=== PATIENT | female | born 1945 | race Caucasian/White ===

== ENCOUNTER 2019-05-13 17:19 | Emergency (ER) | payer MEDICARE, OTHER, SELFPAY ==
--- NOTE | ~2019-05-13 | XR_ITS ---
EXAMINATION: XR shoulder RT min 2V DATE: 05/13/2019 18:02 INDICATION: Pain and limited range of motion at the right shoulder after pulling injury. TECHNIQUE: AP internally and externally rotated, AP oblique externally rotated and transscapular Y vi ews of the right shoulder were obtained. COMPARISON: None FINDINGS: Normal alignment. No fracture.Mild glenohumeral osteoarthritis with inferior predominant joint space narrowing and small marginal osteophyte about the humeral head and glenoid. Moderate acromioclavicul ar osteoarthritis with small inferiorly directed osteophytes. There is also a prominent anterior suba cromial spur. Mild hypertrophic change along the greater tuberosity. There is also several tiny foci of dystrophic calcification in the soft tissues adjacent to the posterior aspect of the greater tuber osity suggesting rotator cuff calcific tendinitis. A few scattered tiny calcified pulmonary nodules c onsistent with old granulomatous disease. Soft tissues are unremarkable. At least moderate cervicotho racic spondylosis. IMPRESSION: Degenerative skeletal changes at the right shoulder as detailed above. No acute osseous abnormality. Reviewed, dictated and finalized at location A. AL TECHNICIAN APPRENTICE
[2019-05-13 17:30] VITALS: BP 170/72; PULSE 81; RESP 20; TEMP 36.7; O2SAT 100
--- NOTE | 2019-05-13 17:30 | ED.UPPEXIN ---
HPI - Extremity Injury (Upper) General Chief Complaint: Extremity Injury, Upper Stated Complaint: right arm injury Time Seen by Provider: 05/13/19 17:30 Source: patient and RN notes reviewed History of Present Illness HPI narrative: Patient is a 73-year-old female who presents the urgent care with complaints of right arm pain radiating from the shoulder to the elbow. Patient states that at 3 PM this afternoon she was walking up a staircase and pulling herself up by her right arm. Patient denies any known fall or trauma but states that she heard a pop and instant pain . Patient states that she is used ibuprofen without much relief. Patient states she is able to move the arm but is having difficulty bearing any weight on the arm. No other acute complaints. No acute distress noted. Patient read the plan of care. Related Data Home Medications Medication Instructions Recorded Confirmed levothyroxine 75 mcg PO DAILY 05/13/19 05/13/19 lisinopril 20 mg PO DAILY 05/13/19 05/13/19 metformin 500 mg PO DAILY 05/13/19 05/13/19 Allergies Allergy/AdvReac Type Severity Reaction Status Date / Time fentanyl Allergy Severe Anaphylactic Verified 05/13/19 17:43 Shock Sulfa (Sulfonamide Allergy Intermediate Rash Verified 05/13/19 17:43 Antibiotics) indapamide AdvReac Intermediate Muscle Verified 05/13/19 17:43 Spasms Review of Systems Review of Systems: Narrative: CONSTITUTIONAL: Denies fever, chills, or sweats. EYES: Denies visual changes, redness, or discharge. ENT: Denies rhinorrhea, congestion, sore throat, or otalgia. CARDIOVASCULAR: Denies chest pain, palpitations, or edema. RESPIRATORY: Denies cough or dyspnea. GASTROINTESTINAL: Denies abdominal pain, nausea, vomiting, or diarrhea. GENITOURINARY: Denies dysuria or hematuria. SKIN: Denies rash or itching. MUSCULOSKELETAL: Reports of R arm pain radiating from the right shoulder to the right elbow NEUROLOGIC: Denies headache, numbness, or weakness. All other systems reviewed are negative, except as documented in HPI. PMFSH Comments At the time of my signature, I reviewed and agree with the nursing past medical, surgical, social, and family history. There is no relevant family history pertinent to the patient complaint. Exam Narrative: Exam Narrative: GENERAL: This is a well-nourished, well-developed patient, in no apparent distress. HEAD: normocephalic, atraumatic. EYES: PERRL. Sclera clear/white. Vision is grossly intact. EARS: External ears normal NOSE: External nose normal with no obvious nasal discharge THROAT: Mucous membranes moist NECK: Neck supple CARDIOVASCULAR: Regular rate and rhythm without murmurs, gallops, or rubs. RESPIRATORY: Clear to auscultation. Breath sounds equal bilaterally. No wheezes, rales, or rhonchi. SKIN: warm, intact with no suspicious lesions or rash, good texture and turgor. NEURO: awake, alert, and oriented to person, place and time. There were no obvious focal neurologic abnormalities. EXTREMITIES: No obvious dislocation or abnormality noted to the right shoulder/right upper arm. No ecchymosis or erythema. Range of motion within normal limits with slight limitation to shoulder rotation due to pain. Grasp within normal limits. Positive strong right radial pulse with capillary refill less than 2 seconds. Course Vital Signs Vital signs: Vital Signs Temperature 98.1 F 05/13/19 17:30 Pulse Rate 81 05/13/19 17:30 Respiratory Rate 20 05/13/19 17:30 Blood Pressure 170/72 H 05/13/19 17:30 Pulse Oximetry 100 05/13/19 17:30 Temperature 98.1 F 05/13/19 17:30 Pulse Rate 81 05/13/19 17:30 Respiratory Rate 20 05/13/19 17:30 Blood Pressure 170/72 H 05/13/19 17:30 Pulse Oximetry 100 05/13/19 17:30 Reviewed-patient is informed that they may have pre-hypertension or hypertension based on a blood pressure reading in the department. I recommend the patient call the primary care provider listed on their discharge
== END 2019-05-13 18:15 | disposition home or self-care (01) ==
PROVIDERS: Emergency Provider Nurse Practitioner Family
DX: M79.621 Pain in right upper arm (principal); M19.011 Primary osteoarthritis, right shoulder; I10 Essential (primary) hypertension; Z96.643 Presence of artificial hip joint, bilateral; E11.9 Type 2 diabetes mellitus without complications; E03.9 Hypothyroidism, unspecified
CPT/HCPCS: 73030; 99213; G0463

== ENCOUNTER 2022-10-11 13:48 | Emergency (ER) | payer MEDICARE, SELFPAY ==
[2022-10-11 14:01] VITALS: BP 171/72; PULSE 73; RESP 18; TEMP 36.6; O2SAT 98
--- NOTE | 2022-10-11 14:28 | ED.GENADULT ---
HPI - General Adult General Chief complaint: Dental/Oral Stated complaint: Facial Swelling Source: patient Mode of arrival: ambulatory Limitations: no limitations History of Present Illness HPI narrative: Patient presents for evaluation of right upper dental pain. She indicates she noted pain in the gums of her upper teeth on the right side yesterday. She woke from sleep this morning with right-sided facial swelling. She cannot provide me with a numerical rating or descriptive quality to her pain. Denies any fever, chills, nausea, vomiting. She is diabetic but is controlled with diet alone. She smokes about 0.5 ppd. Related Data Home Medications Medication Instructions Recorded Confirmed lisinopril 20 mg tablet 20 mg PO DAILY 05/13/19 10/11/22 levothyroxine 100 mcg tablet 100 mcg PO DAILY 10/11/22 10/11/22 Allergies Allergy/AdvReac Type Severity Reaction Status Date / Time fentanyl Allergy Severe Anaphylactic Verified 10/11/22 13:53 Shock Sulfa (Sulfonamide Allergy Intermediate Rash Verified 10/11/22 13:53 Antibiotics) indapamide AdvReac Intermediate Muscle Verified 10/11/22 13:53 Spasms Review of Systems Review of Systems: CONSTITUTIONAL: Denies fever, chills, or sweats. EYES: Denies visual changes, redness, or discharge. ENT: Reports pain in right upper gums with right sided facial swelling CARDIOVASCULAR: Denies chest pain, palpitations, or edema. RESPIRATORY: Denies cough or dyspnea. GASTROINTESTINAL: Denies abdominal pain, nausea, vomiting, or diarrhea. GENITOURINARY: Denies dysuria or hematuria. SKIN: Denies rash or itching. MUSCULOSKELETAL: Denies back pain, joint pain, or myalgia. NEUROLOGIC: Denies headache, numbness, dizziness, or weakness. PSYCHIATRIC: Denies anxiety or depression. [facility] Past Medical History Medical History Diabetes Hypertension Surgical History Surgical History No pertinent past surgical history Family History Family History Mother Family history non-contributory Social History Social History Smoking packs per day: 0.5 Smoking cigarettes per day: 10.0 Smoking status: Current every day smoker Substance use: never Living arrangements: with family Gender identity (if verbalized by the patient): Female Spiritual care concerns: No Exam Narrative: GENERAL: Well-appearing, well-nourished, and in no acute distress. HEAD: Normocephalic, atraumatic. EYES: PERRLA and EOMI. ENT: Nares clear, no rhinorrhea or epistaxis. Mucous membranes moist. There is tenderness in the gumline above tooth #4. Oropharynx without tonsillar hypertrophy exudate or other lesions. Bilateral TMs pearly leone nonbulging. There is mild right sided facial swelling. NECK: Supple. No adenopathy or masses. No carotid bruits or JVD CHEST: Clear to auscultation. No respiratory distress. No wheezes rales or rhonchi HEART: Regular rate and rhythm. No murmur heard. Normal peripheral pulses. ABDOMEN: Soft, nontender, nondistended, normal active bowel sounds. EXTREMITIES: Normal range of motion. No edema. SKIN: Warm, dry, no rash. NEURO: No focal deficits. Alert and oriented x3. PSYCH: Normal mood and affect. Course Course Emergency Course: This is a 76-year-old female who presented for evaluation of facial swelling and dental pain. Provider with smoking cessation education. Will dc with PCN. She states ibuprofen has been effective for pain management. Follow up with primary provider. Go to the ER for worsening symptoms. Pt in agreement with plan of care. Level of Care: Express Care Visit Vital Signs Vital signs: Vital Signs Temperature 36.6 C 10/11/22 14:01 Pulse Rate 73 10/11/22 14:01 Respiratory Rate 18 07/
== END 2022-10-11 14:20 | disposition home or self-care (01) ==
PROVIDERS: Emergency Provider Nurse Practitioner; PCP Internal Medicine
DX: K04.7 Periapical abscess without sinus (principal); F17.210 Nicotine dependence, cigarettes, uncomplicated; E11.9 Type 2 diabetes mellitus without complications; I10 Essential (primary) hypertension
CPT/HCPCS: 99203; G0463

== ENCOUNTER 2023-03-10 19:56 | Emergency (ER) | payer MEDICARE, SELFPAY ==
[2023-03-10 20:06] VITALS: BP 157/72; PULSE 98; RESP 40; TEMP 36.5; O2SAT 98
--- NOTE | 2023-03-10 20:10 | ED.URI ---
HPI - URI/Sore Throat General Chief Complaint: Upper Respiratory Infection Stated Complaint: cough/sob Time Seen by Provider: 03/10/23 20:10 Source: patient and RN notes reviewed Mode of arrival: ambulatory Limitations: no limitations History of Present Illness HPI Narrative: 77-year-old female presents concern for cough that is worsening over the last several days. She is a smoker. She reports history of pneumonia. She has an inhaler at home but she has not been using it. She has been taking Coricidin cough medicine. She denies fever, body aches, chills, sweats, general malaise. MD elicited complaint: cough Related Data Home Medications Medication Instructions Recorded Confirmed lisinopril 20 mg tablet 20 mg PO DAILY 05/13/19 03/10/23 levothyroxine 100 mcg tablet 100 mcg PO DAILY 10/11/22 03/10/23 Allergies Allergy/AdvReac Type Severity Reaction Status Date / Time fentanyl Allergy Severe Anaphylactic Verified 03/10/23 20:09 Shock Sulfa (Sulfonamide Allergy Intermediate Rash Verified 03/10/23 20:09 Antibiotics) indapamide AdvReac Intermediate Muscle Verified 03/10/23 20:09 Spasms Review of Systems Review of Systems: CONSTITUTIONAL: Denies malaise, chills, sweats, or fever. EYES: Denies visual changes, redness, or discharge. ENT: Denies rhinorrhea, congestion, sinus pain, otalgia and sore throat. CARDIOVASCULAR: Denies chest pain, palpitations, or edema. RESPIRATORY: Reports cough and chest congestion, situational dyspnea. GASTROINTESTINAL: Denies abdominal pain, nausea, vomiting, diarrhea SKIN: Denies rash or itching. MUSCULOSKELETAL: Denies myalgia. NEUROLOGIC: Denies headache. All systems reviewed & are unremarkable except as noted in HPI and below PMFSH Past Medical History Medical History (Updated 03/10/23 @ 20:18 by Elizabeth Zuñiga NP) Diabetes Hypertension Surgical History Surgical History No pertinent past surgical history Family History Family History Mother Family history non-contributory Social History Social History Smoking packs per day: 0.5 Smoking cigarettes per day: 10.0 Smoking status: Current every day smoker Substance use: never Living arrangements: with family Gender identity (if verbalized by the patient): Female Spiritual care concerns: No Comments At time of signature, agree with nursing past medical, surgical, social and family history. There is no relevant family history pertinent to the presenting complaint Exam Narrative: GENERAL: Nontoxicl-appearing, well-nourished, and in no acute distress. HEAD: Normocephalic EYES: PERRLA, conjunctivae clear ENT: Nares clear. Mucous membranes moist. TM pearly leone with sharp light reflex bilaterally; no tragal tenderness. Oropharynx not erythematous without lesions. Tonsils not enlarged and without exudate, no drooling, no hoarseness, no trismus, uvula midline. NECK: Supple. No lymphadenopathy CHEST: Inspiratory and expiratory wheeze throughout, breath sounds equal. No rhonchi, rales, or stridor. No respiratory distress, speaks in full sentences. HEART: Regular rate and rhythm. No murmur heard. SKIN: Warm, dry, no rash. NEURO: Alert and oriented x3. PSYCH: Normal mood and affect Course Course Emergency Course: Patient is aware of diagnosis, understands and agrees to treatment plan. Anticipatory guidance given. Patient agrees to follow-up as directed and is aware of reasons to seek care at the emergency department. Portions of this record may have been created with voice recognition software Level of Care: Express Care Visit Vital Signs Vital signs: Vital Signs Temperature 97.7 F 03/10/23 20:06 Pulse Rate 98 03/10/23 20:06 Respiratory Rate 40 H 03/10/23 20:06 Blood Pressure 157/72 H 03/10/23
== END 2023-03-10 20:24 | disposition home or self-care (01) ==
PROVIDERS: Emergency Provider Nurse Practitioner; PCP Internal Medicine
DX: J40 Bronchitis, not specified as acute or chronic (principal); F17.210 Nicotine dependence, cigarettes, uncomplicated; E11.9 Type 2 diabetes mellitus without complications; I10 Essential (primary) hypertension
CPT/HCPCS: 99213; G0463

== ENCOUNTER 2025-02-27 13:47 | Emergency (ER) | payer MEDICARE, SELFPAY ==
--- NOTE | 2025-02-27 13:59 | ED_ITS ---
HPI - URI/Sore Throat General Chief Complaint: Upper Respiratory Infection Stated Complaint: Sore Throat/Cough Time Seen by Provider: 02/27/25 14:00 Source: patient Mode of arrival: ambulatory Limitations: no limitations History of Present Illness HPI Narrative: Dereje is a 79 year old female patient presenting to the clinic today with c/o cough, runny nose, sore throat x 2 days. Sore throat worsening today. Has not taken any medications for her symptoms. States her family member listened to her lungs and she was wheezing. Coughing up clear phlegm. She is a current smoker. No fever, chills, or body aches. Related Data Home Medications ?Medication ?Instructions ?Recorded ?Confirmed ?Last Taken ?Type levothyroxine 100 mcg tablet 100 mcg PO DAILY 10/11/22 03/10/23 Unknown History lisinopril 30 mg tablet mg 02/27/25 Unknown History Allergies Allergy/AdvReac Type Severity Reaction Status Date / Time fentanyl Allergy Severe Anaphylactic Verified 02/27/25 13:49 Shock Sulfa (Sulfonamide Allergy Intermediate Rash Verified 02/27/25 13:49 Antibiotics) indapamide AdvReac Intermediate Muscle Verified 02/27/25 13:49 Spasms Review of Systems Review of Systems: Pertinent positives per HPI. Patient denies any fever, chills, rash, headache, visual changes, dizziness, chest pain, palpitations, nausea, vomiting, diarrhea, constipation, abdominal pain, or any urinary issues. [facility] Past Medical History Medical History (Updated 02/27/25 @ 14:05 by Den Diaz APRN) Hypertension Diabetes Surgical History Surgical History No pertinent past surgical history Family History Family History Mother Family history non-contributory Social History Social History Smoking packs per day: 0.5 Smoking cigarettes per day: 10.0 Smoking status: Current every day smoker Substance use: never Living arrangements: with family Gender identity (if verbalized by the patient): Female Spiritual care concerns: No Comments At the time of my signature, I reviewed and agree with the nursing past medical, surgical, social, and family history. There is no relevant family history pertinent to the patient complaint. Exam Narrative: General: Well-developed, well nourished, in no apparent distress Head: Normocephalic, atraumatic Eyes: Pupils equally round and reactive to light bilaterally, EOM intact, sclera and conjunctive clear, no discharge, lids normal Ears: TMs intact and clear, ear canals clear, no drainage, grossly hearing normal. Nose: Nares patent, clear nasal discharge, mild inflammation, no sinus tenderness. Mouth: Oral pharynx red without lesions or masses, good dentition, MMM. Postnasal drip Neck: Supple, trachea midline, no enlargement of anterior or posterior cervical nodes, no thyroid masses or goiter palpable. Cardio: Regular rate and rhythm, s1 and s2 normal, no murmur appreciated. Resp: Clear to auscultation bilaterally, no rhonchi, rales, wheezing or rubs Course Course Emergency Course: Portions of this record may have been created with voice recognition software. Level of Care: Express Care Visit Vital Signs Vital signs: Vital Signs Temperature 37.2 C 02/27/25 14:02 Pulse Rate 77 02/27/25 14:02 Respiratory Rate 23 H 02/27/25 14:02 Blood Pressure 147/62 H 02/27/25 14:02 Pulse Oximetry 99 02/27/25 14:02 Oxygen Delivery Room Air 02/27/25 14:02 Temperature 37.2 C 02/27/25 14:02 Pulse Rate 77 02/27/25 14:02 Respiratory Rate 23 H 02/27/25 14:02 Blood Pressure 147/62 H 02/27/25 14:02 Pulse Oximetry 99 02/27/25 14:02 Oxygen Delivery Room Air 02/27/25 14:02 Vital signs reviewed MDM - URI/Sore Throat MDM Narrative Medical decision making narrative: At the time of visit patient is resting comfortably on the exam table. Patient appears to be nontoxic. C/o cough, runny nose, sore throat x 2 days. Sore throat worsening today. Has not taken any medications for her symptoms. States her family member listened to her lungs and she was wheezing. Coughing up clear phlegm. She is a current smoker. No fever, chills, or body aches. On exam patient has no TMs intact and clear, clear nasal drainage, mild nasal anterior turbinate inflammation, oral pharynx red with postnasal drip, no cervical lymphadenopathy, lung sounds are clear, heart rates regular rate and rhythm. COVID, flu, and strep test were ordered. Labs: COVID, influenza, and strep test were all negative in the clinic today. We will send strep for culture. Plan: I suspect patient has URI/pharyngitis. Lung sounds are clear in the clinic today however I will send her in a prescription for albuterol inhaler as needed for cough, shortness breath, or wheezing. Recommend Coricidin HBP for cold/flu symptoms. Supportive measures were discussed with the patient and they voiced understanding discharge instructions and agrees to treatment plan. Return precautions reviewed Differential Diagnosis Differential diagnosis: Likely upper respiratory infection, otitis media, sinusitis, viral infection, bronchitis, influenza, pharyngitis and other (COVID) Lab Data Labs: Lab Results 02/27/25 Range/Units 14:09 POC Influenza A Ag Negative (Negative) POC Influenza B Ag Negative (Negative) POC SARS CoV-2 Ag Negative (Negative) POC Grp A Strep Screen Negative (Negative) Discharge Plan Discharge Clinical Impression: Upper respiratory infection Qualifiers: URI type: unspecified URI Qualified Code(s): J06.9 - Acute upper respiratory infection, unspecified Pharyngitis Qualifiers: Pharyngitis/tonsillitis etiology: unspecified etiology Qualified Code(s): J02.9 - Acute pharyngitis, unspecified Patient Disposition: Home Condition: Stable Instructions: Antibiotic Form, Pharyngitis (ED), Cold Symptoms (ED) Additional Instructions: COVID, influenza, and strep test were all negative in the clinic today. We will send strep for culture if this comes back positive we will contact him place you on antibiotics at that time. No sign bacterial infection in the clinic today. Quit smoking. Take albuterol inhaler as prescribed for cough, shortness of breath, wheezing. May take Coricidin HBP for cold/flu symptoms. Increase fluids and stay well hydrated May take Tylenol or motrin as directed on bottle for pain/fever May use Flonase 1 spray in each nare daily May take OTC antihistamines such as Zyrtec or Claritin daily as directed on bottle May apply Vicks vapor rub to chest to open sinuses Sinus rinses for congestion Cepacol spray, cough drops, throat lozenges, warm tea with honey/lemon, gargle salt water to soothe throat BRAT diet for diarrhea Clear liquids x 24 hours then advance as tolerated for nausea/vomiting Go to the ED if you develop a worsening in your condition- high fever not controlled by Tylenol or Motrin, dehydration, weakness, lethargy, shortness of breath, or chest pain. Follow up with your PCP in 3-5 days if symptoms persist. Patient Language: Ukrainian Prescriptions: New albuterol sulfate 90 mcg/actuation HFA aerosol inhaler 2 puff inhalation Q4-6H PRN (Reason: shortness of breath or wheezing) 30 Days Qty: 8.5 0RF No Action lisinopril 30 mg tablet levothyroxine 100 mcg tablet 100 mcg PO DAILY Follow-up/Referrals: Serena,Carleen Thompson, MEDIA MARKETING COORDINATOR [Primary Care Provider, Unknown] Time of Disposition: 14:21 Quality NIHSS Nursing Documentation ED NIHSS nursing documentation: reviewed/agree
[2025-02-27 14:02] VITALS: BP 147/62; PULSE 77; RESP 23; TEMP 37.2; O2SAT 99
[2025-02-27 14:11] LABS: EDCOVIDSCREEN Negative (Negative); EDINFLUASCREEN Negative (Negative); EDINFLUBSCREEN Negative (Negative); EDSTREPNEGPOS1 Negative (Negative)
--- OUTSIDE RECORDS SUMMARY | 2025-02-27 15:36 | XMS_ITS | Clinical Summary ---
Author Organization [facility] Address [address] [address] Phone Care Team Providers Care Freelance Patternmaker Name Role Phone Angel Saravia MD Unavailable Carleen Lyons AUTOMOTIVE SALES REPRESENTATIVE, LONG HAUL TRUCK DRIVER Primary Care Provider Allergies Active Allergy Reactions Criticality Noted Date Comments Dopamine Other (see Comments) Low 02/07/2015 Fentanyl Anaphylaxis High 07/23/2016 Hydromorphone Hcl Other (see Comments) Low 07/24/19 17 Made pt feel crazy in the head Monosodium Glutamate Other (see Comments) High 07/27 Severe headache Sulfa Antibiotics Other (see Comments) Low 02/08/20 15 Medications Multiple Vitamins-Minera ls (MULTI-BETIC PO) Take 1 Tablet by mouth Daily. Active Sennosides (PERDIEM OVERNIGHT RELIEF PO) Take 1 Tab by mouth as needed (constipation). Active Calcium Citrate-Vitamin D (CALCIUM + D PO) Take 1 Tab by mouth daily. Active HYDROcodone-angel taminophen (NORCO) 5-325 MG TabletIndicatio ns:Moderate to Moderately Severe Pain Take 1 Tab by mouth every 6 hours as needed. Indications: Moderate to Moderately Severe Pain 30 Tab 0 7 Active Additional Information Patient not taking.Reported on 07/13/2023 gabapentin (NEURONTIN) 300 MG Capsule Take 1 Cap by mouth 3 times daily. 90 Cap 0 7 Active Additional Information Patient not taking.Reported on 07/13/2023 DULoxetine (CYMBALTA) [address] Particles Take 1 Cap by mouth daily. 30 Cap 0 7 Active lisinopril (PRINIVIL, ZESTRIL) 20 MG Tablet Take 1 Tab by mouth daily. 30 Tab 0 7 Active nicotine (NICODERM CQ) 14 MG/24HR PATCH 24 HR 1 Patch by Transdermal route daily. 28 Patch 0 7 Active Additional Information Patient not taking.Reported on 07/13/2023 aspirin 81 MG Chewable Tablet Take 81 mg by mouth daily. Active acetaminophen (Tylenol) 325 MG Tablet Take 325 mg by mouth every 4 hours as needed for Pain. 2 tablets Active furosemide (LASIX) 20 MG Tablet Take 20 mg by mouth Once daily as needed (ankle swelling). Active levothyroxine (SYNTHROID) 100 MCG Tablet Take 100 mcg by mouth daily. Active ALBUTEROL IN take by inhalation. Active B Complex Vitamins (Vitamin B-Complex) Tablet Take 1 Tablet by mouth daily. Active hydrocortisone 1 % Cream Apply 1 Application. 3 Active ibuprofen (MOTRIN) 800 MG Tablet TAKE 1 TABLET BY MOUTH EVERY 6 HOURS 4 Active Active Problems Problem Noted Date Diagnosed Date Lung nodule, multiple 07/15/2023 Tobacco use disorder 07/15/2023 Abnormality of gait and mobility 07/25/2016 Status post total replacement of right hip 07/25 Acute blood loss anemia 07/25/2016 HTN (hypertension), benign 07/25/2016 Degenerative joint disease (DJD) of hip 07/23/19 17 Encounters Date Type Department Care Team Description 01/30/2025 1:30 PM CDT [facility] [address] [place] [address] Carleen Lyons, AUTOMOTIVE SALES REPRESENTATIVE, [employer] HAUL TRUCK DRIVER Cigarette nicotine dependence, uncomplicated Discharge Disposition: Discharged to home or Selfcare 01/30/2025 Travel 01/23/2025 12:17 PM CDT - 01/23/2025 11:59 PM CDT [facility] [address] [place] [address] Carleen Lyons APRN, [employer] HAUL TRUCK DRIVER Discharge Disposition: Discharged to home or Selfcare 01/23/2025 Travel 01/10/2025 [facility] [address] [place] [address] Carleen Lyons, CARLOS, LONG HAUL TRUCK DRIVER Localized swelling, mass and lump, unspecified (Primary Dx) 12/26/2024 [facility] [address] [place] [address] Carleen Lyons APRN, LOIS 12/26/2024 [facility] [address] [place] [address] Carleen Lyons, CARLOS, [employer] HAUL TRUCK DRIVER Cigarette nicotine dependence, uncomplicated (Primary Dx) from Last 3 Months Immunizations Immunization Administration Dates Next Due TB Skin Test 08/01/2016,07/27/2016,07/25/2016 Family History Medical History Relation Name Comments Arthritis Father Asthma Father Arthritis Mother Diabetes Mother Heart Attack Mother Relation Name Status Comments Father Mother Alive Social History Tobacco Use Types Packs/Day Years Used Date Smoking Tobacco: Every Day Cigarettes 1 47 Alcohol Use Standard Drinks/Week Comments No 0 (1 standard drink = 0.6 oz pur e alcohol) Comments No Sex and Gender Information Value Date Recorded Sex Assigned at Female 06/24/2023 10:35 PM CDT Legal Sex Female 8:30 PM CDT Gender Identity Female 06/24/2023 10:35 PM CDT Sexual Orientation Not on file Last Filed Vital Signs Vital Sign Reading Time Taken Comments Blood Pressure 116/78 07/15/2023 10:52 AM CDT Pulse 62 07/15/2023 10:52 AM CDT Temperature 37.1 C (98.7 F) 07/15/2023 10:52 AM CDT Respiratory Rate 14 07/15/2023 10:52 AM CDT Oxygen Saturation 99% 07/15/2023 10:52 AM CDT Inhaled Oxygen Concentration - - Weight 67 kg (147 lb 11.2 oz) 07/15/2023 10:52 A M CDT Height 154.9 cm (5' 1) 07/15/2023 10:52 AM CDT Body Mass Index 27.91 07/15/2023 10:52 AM CDT Plan of Treatment Health Maintenance Due Date Last Done Comments DEXA Bone Density 1945 Hepatitis C Virus (HCV) Screening 1945 Varicella Immunization (1 of 2 - 13+ 2-dose series) 12/11/1960 Zoster Immunization (1 of 2) 12/11/1997 Medicare Initial AWV [id number] 12/04/2013 Respiratory Syncytial Virus (RSV) Immunization (Adult) (1 - 1-dose 75+ series) 12/11/2022 SARS-COV-2 Immunization ( - 2024- season) 2024 08/19/2020, 07/22/2020 DTaP/Tdap/Td Immunization Discontinued 07/09/2016 TdaP Immunization Completed 07/09/2016 Pneumococcal Immunization (50+ years) Completed 10/27/2016, 12/25/2014 Pneumococcal Immunization Combined Discontinued 10/27/2016, 12/25/2014 Mammogram Discontinued 07/21/2021 Influenza Immunization Completed , 02/22/2024, 02/19/2021, Additional history exists Lung Cancer Screening Discontinued 01/30/2025 , 06/24/2023, 12/17/2022, Additional history exists Hepatitis B Immunization Aged Out No longer eligible based on patient's age to complete this topic Human Papillomavirus (HPV) Immunization Aged Out No longer eligible based on patient's age to complete this topic Meningococcal Immunization (ACWY) Aged Out No longer eligible based on patient's age to complete this topic Rotavirus Immunization Aged Out No lo nger eligible based on patient's age to complete this topic Medical Devices Implanted Type Area Pasteurizing Machine Operator Device Identifier Shelf Expiration Date Model / Serial / Lot Dynasty Acetabular System Comp Biofoam S - [id number] Implanted:Qty: 1 on 07/22/2016 by Jhony Browning MD at [facility] IMPLANT Right: Hip [email or web address] 02/10/2024 [id number] / / [id number] [facility] Can [facility] Advtm 6.5x25mm - [id number] Implanted:Qty: 2 on 07/22/2016 by Jhony Browning MD at [facility] IMPLANT Right: Hip [employer] 01/28/2024 [id number] / / [id number] Scr Canc St Advtm 6.5x20mm - [id number] Implanted:Qty: 1 on 07/22/2016 by Jhony Browning MD at [facility] IMPLANT Right: Hip [employer] 09/19/2023 [id number] / / [id number] [employer] Renaissance Stem Standard Sz 13 - [id number] Implanted:Qty: 1 on 07/22/2016 by Jhony Browning MD at [facility] IMPLANT Right: Hip [employer] 06/03/2023 [id number] / / [id number] Dynasty Aclass Poly Liner 15 Deg Liner 3 - [id number] Implanted:Qty: 1 on 07/22/2016 by Jhony Browning MD at [facility] IMPLANT Right: Hip [employer] 08/13/2023 [id number] / / [id number] Prof[employer]ur Plus Cocr Neck A/R 8 Short - [id number] Implanted:Qty: 1 on 07/22/2016 by Jhony Browning MD at [facility] IMPLANT Right: Hip [employer] 06/30/2024 [id number] / / [id number] [employer] Delta Femoral Head Implanted:Qty: 1 on 07/22/2016 by Jhony Browning MD at [facility] Right: Hip [employer] 09/25/2023 [id number] / / [id number] Procedures Procedure Name Priority Date/Time Associated Diagnosis Comments CT CHEST SCREENING WO Routine 01/30/2025 1:39 PM CDT Cigarette nicotine dependence, uncomplicated US RIGHT EXTREMITY NON-VASC LTD Routine 01/23/2025 1:36 PM CDT Localized swelling, mass and lump, unspecified from Last 3 Months Results * CT CHEST SCREENING WO (01/30/2025 1:39 PM CDT) Anatomical Region Laterality Modality Chest N/A Computed Tomogra phy 01/30/2025 1:26 PM CDT Impressions 02/01/2025 11:23 AM CDT IMPRESSION: Alpa-RADS 3-Probably Benign. Recommend LDCT screen 6 months. Stable 12 x 8 mm nodule in the right lower lobe. No new or enlarging lung nodules Narrative 02/01/2025 11:[address] CHEST SCREENING WO EXAM DATE: 01/30/2025 1:28 PM HISTORY: 79 years year old Female. Nicotine dependence, cigarettes, uncomplicated TECHNIQUE: Low-dose CT chest without contrast (LDCT). Sagittal and coronal reformats. CT dose reduction techniques used. Exam performed using one or more of the following dose reduction techniques: Automated exposure control, adjustment of the mA and/or kV according to patient size, and/or use of iterative reconstruction. COMPARISON: Comparison made with previous examination(s) dated (CT) 24-Jun-2023,(CT) 22-Jun-2019. FINDINGS: LUNGS: Central airways are patent. Mild diffuse bronchial wall thickening. Trace emphysematous changes Scattered bilateral calcified granulomas. Redemonstrated numerous bilateral upper lobe predominant centrilobular nodules, largest as follows: Stable 12 x 8 mm nodule in the right lower lobe (series 3 image 107). 6 mm juxtapleural nodule in the right upper lobe is stable (series 3 image 91). 6 mm nodule in the left upper lobe is stable (series 3 image 66). 6 mm subpleural left lower lobe subsolid nodule is unchanged (series 3 image 131). 4 mm juxtapleural nodule left lower lobe is stable (series 3 image 137). No new or enlarging lung nodules. MEDIASTINUM: The heart is enlarged. Diffuse coronary artery calcifications. No pericardial effusion. Dilated pulmonary trunk measuring 3.2 cm. Aorta is normal in caliber. PLEURAL SPACE: No pleural effusion, pleural mass or pneumothorax. UPPER ABDOMEN: Unremarkable in visualized portions. LYMPH NODES: Stable 2.2 cm left adrenal nodule suggestive of an adenoma. Tiny hiatal hernia. OSSEOUS STRUCTURES AND SOFT TISSUES: Dystrophic calcifications in the right breast incompletely imaged. Bony demineralization. Cervical and thoracic spondylosis. No suspicious osseous lesions. Procedure Note Brandon Fajardo MD - 02/01/2025 CT CHEST SCREENING WO EXAM DATE: 01/30/2025 1:28 PM HISTORY: 79 years year old Female. Nicotine dependence, cigarettes,uncomplicated TECHNIQUE: Low-dose CT chest without contrast (LDCT). Sagittal and coronalreformats. CT dose reduction techniques used. Exam performed using one ormore of the following dose reduction techniques: Automated exposurecontrol, adjustment of the mA and/or kV according to patient size, and/oruse of iterative reconstruction. COMPARISON: Comparison made with previous examination(s) dated (CT)24-Jun-2023,(CT) 22-Jun-2019. FINDINGS: LUNGS: Central airways are patent. Mild diffuse bronchial wall thickening.Trace emphysematous changes Scattered bilateral calcified granulomas. Redemonstrated numerousbilateral upper lobe predominant centrilobular nodules, largest asfollows: Stable 12 x 8 mm nodule in the right lower lobe (series 3 image 107). 6 mm juxtapleural nodule in the right upper lobe is stable (series 3 image91). 6 mm nodule in the left upper lobe is stable (series 3 image 66). 6 mm subpleural left lower lobe subsolid nodule is unchanged (series 3image 131). 4 mm juxtapleural nodule left lower lobe is stable (series 3 image 137). No new or enlarging lung nodules. MEDIASTINUM: The heart is enlarged. Diffuse coronary arterycalcifications. No pericardial effusion. Dilated pulmonary trunk measuring3.2 cm. Aorta is normal in caliber. PLEURAL SPACE: No pleural effusion, pleural mass or pneumothorax. UPPER ABDOMEN: Unremarkable in visualized portions. LYMPH NODES: Stable 2.2 cm left adrenal nodule suggestive of an adenoma.Tiny hiatal hernia. OSSEOUS STRUCTURES AND SOFT TISSUES: Dystrophic calcifications in theright breast incompletely imaged. Bony demineralization. Cervical andthoracic spondylosis. No suspicious osseous lesions. IMPRESSION: Alpa-RADS 3-Probably Benign. Recommend LDCT screen 6 months. Stable 12 x 8 mm nodule in the right lower lobe. No new or enlarging lungnodules us Carleen Lyons APRN, LONG HAUL TRUCK DRIVER IMG CT ORDERABLES Final Result * US RIGHT EXTREMITY NON-VASC LTD (01/23/2025 1:36 PM CDT) Anatomical Region Laterality Modality BODY Right Ultrasound 01/23/2025 1:36 PM CDT Impressions 01/25/2025 2:03 PM CDT IMPRESSION: Unremarkable exam. There is no sonographic correlate for the patient's palpable lump. Base further management on clinical findings. If symptoms continue to progress, further evaluation could be considered with MRI. Narrative 01/25/2025 2:03 PM CDT US RIGHT EXTREMITY NON-VASC LTD : 01/23/2025 1:36 PM DICTATING PHYSICIAN: Fredi Martin MD, [facility]. HISTORY: As below. Technologist history: Localized swelling, mass and lump, unspecified COMPARISON: None. FINDINGS: Grayscale and color Doppler imaging was performed at the palpable lump over the distal aspect of the right leg laterally. Underlying subcutaneous tissues and musculature appear unremarkable with no focal masses or fluid collections. No hyperemia on color Doppler. Procedure Note Fredi Nur MD - 01/25/2025 US RIGHT EXTREMITY NON-VASC LTD : 01/23/2025 1:36 PM DICTATING PHYSICIAN: [facility] HISTORY: As below. Technologist history: Localized swelling, mass and lump, unspecified COMPARISON: None. FINDINGS: Grayscale and color Doppler imaging was performed at the palpable lumpover the distal aspect of the right leg laterally. Underlying subcutaneoustissues and musculature appear unremarkable with no focal masses or fluidcollections. No hyperemia on color Doppler. IMPRESSION: Unremarkable exam. There is no sonographic correlate for the patient'spalpable lump. Base further management on clinical findings. If symptoms continue toprogress, further evaluation could be considered with MRI. us Carleen Hamilton Serena GONZALEZ, LONG HAUL TRUCK DRIVER IMG US ORDERABLES Final Result from Last 3 Months Insurance MEDICARE C HUMANA MEDICARE Advance Directives * Full Code (Latest Code Status on File) Date Activated Date Inactivated Comments 08/11/2016 4:33 PM * Full Code Date Activated Date Inactivated Comments 07/24/2016 6:26 PM 08/05/2016 11:47 AM CPR-Full Thiago atment: FULL ARREST: Attempt Resuscitation/CPR wit intubation and mechanical ventilation. PRE-ARREST: Use entire range of life support measures to stabilize the patient. * Full Code Date Activated Date Inactivated Comments 07/22/2016 6:02 AM 07/24/2016 6:26 PM CPR-Full Thiago atment: FULL ARREST: Attempt Resuscitation/CPR wit intubation and mechanical ventilation. PRE-ARREST: Use entire range of life support measures to stabilize the patient. * Full Code Date Activated Date Inactivated Comments 02/08/2015 8:52 AM 07/22/2016 6:02 AM Care Teams Freelance Patternmaker Relationship Specialty Start Date End Date Carleen Lyons, AUTOMOTIVE SALES REPRESENTATIVE, [employer] HAUL TRUCK DRIVER [address] [place] [address] PCP - General Advanced Practice Nurse 01/11/25 Angel Saravia MD [address] [place] [address] Consulting Physician Pulmonary Disease 07/15/23
--- OUTSIDE RECORDS SUMMARY | 2025-02-27 15:36 | XMS_ITS | Clinical Summary ---
Author Organization [facility] Address [address] [place] [address] Care Team Providers Care Train Operator Name Role Phone Florentino Lee MD Primary Care Provider [phone] Allergies Active Allergy Reactions Criticality Noted Date Comments Dopamine Other (See comments) Low 02/07/2015 Fentanyl Anaphylaxis High 07/23/2016 Hydromorphone Hcl Other (See comments) Low 07/24/19 17 Made pt feel crazy in the head Monosodium Glutamate Other (See comments) High 07/27 Severe headache Sulfa (Sulfonamide Antibiotics) Other (See comments) Low 02/07/2015 Medications acetaminophen (TYLENOL) 325 mg tablet Take 1 tablet (325 mg total) by mouth every 4 (four) hours as needed Active aspirin 81 mg chewable tablet Take 1 tablet (81 mg total) by mouth daily Active chlorhexidine (PERIDEX) 0.12 % solution Apply 15 mL to the mouth or throat 2 (two) times a day 10/12/19 23 Active lisinopriL (PRINIVIL,ZESTRIL) 20 mg tablet Take 1 tablet (20 mg total) by mouth daily Active levothyroxine (SYNTHROID) 100 mcg tablet Take 1 tablet (100 mcg total) by mouth ring striker before breakfast Active albuterol (PROAIR RESPICLICK) 90 mcg/actuation inhaler Inhale 2 puffs every 6 (six) hours as needed for wheezing Active vitamin b complex tablet Take 1 tablet by mouth daily Active cholecalciferol (VITAMIN D-3) 99778 unit tablet 1 tablet (10,000 Units total) daily Active ondansetron ODT (ZOFRAN-ODT) 4 mg disintegrating tablet Take 1 tablet (4 mg total) by mouth every 8 (eight) hours as needed for nausea or vomiting for up to 15 doses 15 tablet 12/23/19 23 Active hydrocortisone 1 % creamIndications:S kin Inflammation Apply 1 Application topically 2 (two) times a day for 14 days 30 g 12/29/19 23 Active benzonatate (TESSALON) 100 mg capsuleIndications :Cough Take 1 capsule (100 mg total) by mouth every 8 (eight) hours 21 capsule 12/29/19 23 Active Active Problems Problem Noted Date Diagnosed Date Abdominal pain 12/17/2022 Colon perforation 12/17/2022 HTN (hypertension) 12/17/2022 HLD (hyperlipidemia) 12/17/2022 Lung nodule 12/17/2022 Hypothyroidism 12/17/2022 Occult blood in stools 12/08/2022 Assessment & Plan (12/08/2022 2:57 PM CDT): colonoscopy Family history of colon cancer 12/08/2022 Surgical History Surgery Date Site/Laterality Comments COLONOSCOPY 04/05/1984 - 04/04/1985 COLONOSCOPY 12/17/2022 TOTAL HIP ARTHROPLASTY 04/05/2014 - 04/04/2015 Left TOTAL HIP ARTHROPLASTY 04/05/2016 - 04/04/2017 Right HEMORRHOID SURGERY 04/05/1984 - 04/04/1985 TUBAL LIGATION 04/05/1983 - 04/04/1984 RECTAL SURGERY 04/05/1983 - 04/04/1984 Medical History Medical History Date Comments Hypertension Hyperlipidemia Type 2 diabetes mellitus PONV (postoperative nausea and vomiting) Family History Medical History Relation Name Comments Colon cancer Daughter Colon cancer Mother's Sister Relation Name Status Comments Daughter Alive Mother's Sister Social History Tobacco Use Types Packs/Day Years Used Date Smoking Tobacco: Every Day Cigarettes AUDIT-C Answer Date Recorded Q1: How often do you have a drink containing alcohol? Never 12/17/2022 Q2: How many drinks containi ng alcohol do you have on a typical day when you are drinking? Patient does not drink Q3: How often do you have si x or more drinks on one occasion? Never 12/17/2022 Personal Safety Answer Date Recorded Have you ever been in or are you currently in a harmful physical or emotional relationship or is someone making you feel afraid or unsafe? Denies 12/28/2022 Comments No Sex and Gender Information Value Date Recorded Sex Assigned at Not on file Legal Sex Female 12:22 AM MUSHROOM PICKER Gender Identity Not on file Sexual Orientation Not on file Obstetrics History Para Term AB IAB SAB Ectopic Multiple Livin g Live Births 7 7 7 Date Outcome GA Total Labor Labor/2nd/3rd Weight Sex Type Anes PTL Dina A1 A5 Name Clin Term Term Term Term Term Term Term Last Filed Vital Signs Vital Sign Reading Time Taken Comments Blood Pressure 128/70 12/28/2022 10:10 PM CDT Pulse 64 12/28/2022 10:10 PM CDT Temperature 36.6 C (97.9 F) 12/28/2022 1:52 PM CDT Respiratory Rate 20 12/28/2022 10:10 PM CDT Oxygen Saturation 95% 12/28/2022 10:10 PM CDT Inhaled Oxygen Concentration - - Weight 68 kg (150 lb) 12/28/2022 1:52 PM CDT Height 154.9 cm (5' 1) 12/17/2022 2:04 PM CDT Body Mass Index 28.34 12/17/2022 2:04 PM CDT Plan of Treatment Health Maintenance Due Date Last Done Comments Depression Screening 1945 Hepatitis C Screening 1945 Osteoporosis Screening-Bone Density Scan 1945 Hepatitis B Screening 12/11/1965 Zoster Vaccine (1 of 2) 12/11/1997 Well Visit 65+ 12/11/2012 Fall Risk Assessment 12/23/2023 12/22/2022 Covid-19 Vaccine (2024-05 6 season) 2024 08/19/2020, 07/22/2020 Influenza Vaccine (#1) 2024 , 06/13/2019, 06/09/2018, Additional history exists DTaP/Tdap/Td Vaccine (2 - Td or Tdap) 07/09/2026 07/09/2016, 10/03/2006 Pneumococcal vaccine 65+ Completed 10/27/2016, 12/05 Breast Cancer Screening-Mammogram Discontinued 022 Procedures Procedure Name Priority Date/Time Associated Diagnosis Comments SCREENING MAMMOGRAM BILATERAL W TJ Schedule Routine, Read Routine (OP Routine) 07/21/2021 12:12 PM CDT Encounter for screening mammogram for malignant neoplasm of breast from Last 3 Months or Most Recently Relevant to Health Maintenance Results * Screening Mammogram Bilateral W Tj (07/21/2021 12:12 PM CDT) Anatomical Region Laterality Modality Breast Bilateral Mammography 07/21/2021 12:5 0 PM CDT Impressions 07/21/2021 12:50 PM CDT There is no mammographic evidence of malignancy. Routine screening mammography is recommended in 1 year. BI-RADS: 2 - Benign. The patient will be entered into a reminder system with a target due date of 1 year for her next mammogram. Electronically signed by: Pb Olmos M.D. Narrative 07/21/2021 12:50 PM CDT EXAMINATION: SCREENING MAMMOGRAM BILATERAL W TJ ORDERING HEALTHCARE PROVIDER: FLORENTINO LEE HISTORY: New baseline screening mammography. COMPARISON: None available. TECHNIQUE: CC and MLO views of the bilateral breasts were obtained with digital technique using breast tomosynthesis with C view. Computer aided detection was utilized. FINDINGS: DENSITY: There are scattered fibroglandular elements in the bilateral breasts. BREASTS: There are benign bilateral breast calcifications. There are no suspicious masses, suspicious calcifications, or other suspicious findings in either breast. Florentino Lee MD IMG MAMMO PROCEDURES Final Re sult from Last 3 Months or Most Recently Relevant to Health Maintenance Insurance HU[employer]NA CHOICE MEDICARE PPO HU[employer]NA CHOICE MEDICARE PPO Advance Directives For more information, please contact: [phone] * Full Code (Latest Code Status on File) Date Activated Date Inactivated Comments 12/17/2022 11:30 AM 12/22/2022 11:01 PM * Full Code Date Activated Date Inactivated Comments 12/17/2022 11:30 AM 12/17/2022 11:30 AM Care Teams Train Operator Relationship Specialty Start Date End Date Florentino Lee MD [address] [place] [address] PCP - General 06/19/21
--- OUTSIDE RECORDS SUMMARY | 2025-02-27 15:36 | XMS_ITS | Encounter Summary ---
Author Organization [facility] Address [address] [place] [address] Phone Care Team Providers Care Atmospheric Physics Professor Name Role Phone Gladis Torres MD Primary Care Provider [phone] Angel Saravia MD Unavailable Carleen Lyons APRN, LAUNCH ENGINEER Primary Care Provider Encounter Details Date Type Department Care Team (Late st Contact Info) Description 04/27/2023 [facility] [address] [place] [address] Gladis Torres MD [address] [place] [address] Social History Tobacco Use Types Packs/Day Years [...] PM CDT Sexual Orientation Not on file documented as of this encounter Plan of Treatment Not on file documented as of this encounter Visit Diagnoses Not on filedocumented in this encounter Care Teams Atmospheric Physics Professor Relationship Specialty Start Date End Date Gladis Torres MD [address] [place] [address] PCP - General Internal Medicine 02/04/15 01/10/25 Carleen Lyons, LABORER [employer], LAUNCH ENGINEER [address] [place] [address] PCP - General Advanced Practice Nurse 01/11/25 Angel Saravia MD [address] [place] [id number] Consulting Physician Pulmonary Disease 07/15/23 documented as of this encounter
--- OUTSIDE RECORDS SUMMARY | 2025-02-27 15:36 | XMS_ITS | Encounter Summary ---
Author Organization [facility] Address [address] [place] [address] Phone Care Team Providers Care Retail Planning Manager Name Role Phone Gladis Torres MD Primary Care Provider Angel Saravia MD Unavailable Carleen Lyons VP SECURITIES, FINANCIAL WELLNESS COACH Primary Care Provider Encounter Details Date Type Department Care Team (Late st Contact Info) Description 12/26/2024 Transcribe Orders [facility] Central Scheduling [address] [place] [address] Carleen Lyons, VP SECURITIES, FINANCIAL WELLNESS COACH [address] [place] [address] Social History Tobacco Use Types [...] on filedocumented in this encounter Care Teams Retail Planning Manager Relationship Specialty Start Date End Date Gladis Torres MD [address] [place] [address] PCP - General Internal Medicine 02/04/15 01/10/25 Carleen Lyons APRN, FINANCIAL WELLNESS COACH [address] [place] [address] PCP - General Advanced Practice Nurse 01/11/25 Angel Saravia MD [address] [place] [id number] Consulting Physician Pulmonary Disease 07/15/23 documented as of this encounter
== END 2025-02-27 14:31 | disposition home or self-care (01) ==
PROVIDERS: Emergency Provider Nurse Practitioner Family; PCP Nurse Practitioner Family
DX: J06.9 Acute upper respiratory infection, unspecified (principal); J02.9 Acute pharyngitis, unspecified; Z20.822 Contact with and (suspected) exposure to COVID-19; F17.210 Nicotine dependence, cigarettes, uncomplicated; I10 Essential (primary) hypertension; E11.9 Type 2 diabetes mellitus without complications
CPT/HCPCS: 87081; 87426; 87804; 87880; 99213; G0463